=== PATIENT | male | born 1990 | race Caucasian/White ===

== ENCOUNTER 2016-06-14 23:05 | Emergency (ER) | payer BC ==
[~2016-06-14] VITALS: Ht 180.3 cm; Wt 72.6 kg
--- NOTE | 2016-06-14 23:05 | NUR ---
Patient to ER bed 3 to gown for evaluation. Side rails up. Report given to Mora RASCON.
--- NOTE | 2016-06-14 23:10 | NUR ---
Patient to ER C/O left ear pain and discharge. Patient states that he was playing with cats toy and accidentally injured left ear and noticed some discharge, some bloody. States muffled sounds with left ear. AAOx4, unlabored breathing, no signs of acute distress.
[2016-06-14 23:11] VITALS: BP 118/75; PULSE 65; RESP 18; TEMP 98; O2SAT 98
--- NOTE | 2016-06-14 23:12 | NUR ---
ER MD Ashley at bedside for evaluation
[2016-06-14 23:36] VITALS: BP 114/70; PULSE 68; RESP 17; TEMP 98; O2SAT 99
--- NOTE | 2016-06-14 23:36 | NUR ---
Patient given written and verbal discharge instructions and verbalizes understanding. ER MD Ashley discussed with patient the results and treatment provided. Patient in stable condition. ID arm band removed. Rx of tylenol w codeine given. Patient educated on pain management and to follow up with PMD. Pain Scale 0/10. Opportunity for questions provided and answered.
== END 2016-06-14 23:36 | disposition home or self-care (01) ==
LOC: EDBD 23:05 → SED 23:05
DX: S09.22XA Traumatic rupture of left ear drum, initial encounter (principal); Z88.1 Allergy status to other antibiotic agents; W22.8XXA Striking against or struck by other objects, initial encounter; Y93.89 Activity, other specified; Y99.8 Other external cause status; Y92.89 Other specified places as the place of occurrence of the external cause
CPT/HCPCS: 99283